=== PATIENT | male | born 1965 | race Caucasian/White ===

== ENCOUNTER 2019-01-08 18:49 | Inpatient (IN) | payer OTHER ==
[~2019-01-08] VITALS: Ht 180.3 cm; Wt 83.2 kg
[2019-01-08 19:36] LABS: BASO % 0.7 % (0.0-2.0); EOS # 0.1 (0.0-0.7); EOS % 2.1 % (0-4.0); GRAN # 3.7 (1.4-6.5); GRAN % 64.4 % (42.2-75.2); HEMATOCRIT 38.7 % (42.0-52.0); HEMOGLOBIN 13.3 g/dl (13.5-18.0); LYMPH # 1.3 (1.2-3.4); LYMPH % 23.5 % (20.0-51.0); MEAN CELL VOLUME 86 fl (80.0-100.0); MEAN CORPUSCULAR HEMOGLOBIN 30 pg (27.0-31.0); MEAN CORPUSCULAR HGB CONC 34 g/dl (33.0-37.0); MONO # 0.5 (0.1-0.6); MONO % 8.9 % (1.7-9.3); PLATELET COUNT 210 K/mm3 (130-400); REDCELL DISTRIBUTION WIDTH-CV 13.5 % (11.5-14.5)
[2019-01-08 19:46] LABS: COLLECTION METHOD CLEAN CATCH
[2019-01-08 19:46] LABS: INR 1.1 (0.8-3.0); PROTHROMBIN TIME 12.9 SECONDS (9.7-12.8)
[2019-01-08 19:49] LABS: ALBUMIN 3.9 gm/dL (3.5-5.0); BILIRUBIN,TOTAL 7.8 mg/dL (0.0-1.0); C-REACTIVE PROTEIN 2.6 mg/dL (0.0-0.9); CALCIUM 9.5 mg/dL (8.4-10.2); CREATININE, serum 0.7 mg/dL (0.66-1.25); POTASSIUM 3.4 mmol/L (3.4-5.0); TOTAL PROTEIN 7.1 gm/dL (6.4-8.2)
[2019-01-08 19:55] LABS: MUCOUS Present /lpf; PH 5 (5-8); SQUAMOUS EPITHELIAL 0-2 /hpf; URINE APPEARANCE Clear; URINE BACTERIA None Seen /hpf; URINE BILIRUBIN Positive (NEGATIVE); URINE BLOOD Negative (NEGATIVE); URINE COLOR Amber; URINE GLUCOSE Negative (NEGATIVE); URINE KETONE Negative (NEGATIVE); URINE LEUKOCYTE ESTERASE Negative (NEGATIVE); URINE NITRATE Negative (NEGATIVE); URINE PROTEIN(semi-quant) Negative (NEGATIVE); URINE RBC None Seen /hpf; URINE UROBILINOGEN >=4.0 mg/dL (NEGATIVE)
[2019-01-08] MEDS ORDERED: PRINIVIL2.5 MG PO (20:09)
--- NOTE | 2019-01-08 21:00 | NUR ---
Patient arrived to floor from ED per w/c. Ambulatory in room. Has SL to left AC without redness or swelling. Denies pain at this time.
[2019-01-08 21:05] VITALS: BP 122/71; PULSE 50; TEMP 97.7
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
[2019-01-08 23:19] VITALS: BP 106/62; PULSE 59; TEMP 97.7
[2019-01-09] VITALS (16 sets, daily range): BP systolic 101–123; BP diastolic 57–72; PULSE 57–99; TEMP 97.5–99.1
--- NOTE | 2019-01-09 01:45 | NUR ---
Patient IV site with mild infiltration. Restarted #20 to right wrist on first attempt. IVF infusing without redness or swelling.
--- NOTE | 2019-01-09 02:00 | NUR ---
Patient denies need for pain meds at this time. Remains NPO. IV infusing to right wrist without redness or swelling.
--- NOTE | 2019-01-09 05:36 | NUR ---
Patient voids 300cc of dark tea colored urine. Refuses SCD's stating "I am walking around". IVF continue to right wrist without redness or swelling.
--- NOTE | 2019-01-09 06:09 | NUR ---
Phoned Dr Pedraza regarding ERCP potential time. New orders given for a noon time frame today.
[2019-01-09 06:58] LABS: BASO % 0.9 % (0.0-2.0); EOS # 0.2 (0.0-0.7); EOS % 3.9 % (0-4.0); GRAN # 2.4 (1.4-6.5); GRAN % 54.4 % (42.2-75.2); HEMOGLOBIN 12.4 g/dl (13.5-18.0); LYMPH # 1.3 (1.2-3.4); LYMPH % 29.5 % (20.0-51.0); MEAN CELL VOLUME 87 fl (80.0-100.0); MEAN CORPUSCULAR HEMOGLOBIN 30 pg (27.0-31.0); MEAN CORPUSCULAR HGB CONC 34 g/dl (33.0-37.0); MONO # 0.5 (0.1-0.6); MONO % 11.1 % (1.7-9.3); PLATELET COUNT 198 K/mm3 (130-400); RED BLOOD COUNT 4.21 M/mm3 (4.20-5.60); REDCELL DISTRIBUTION WIDTH-CV 13.7 % (11.5-14.5)
[2019-01-09 07:00] LABS: HEMATOCRIT 36.4 % (42.0-52.0)
[2019-01-09 07:12] LABS: ALBUMIN 3.3 gm/dL (3.5-5.0); BILIRUBIN,TOTAL 6.6 mg/dL (0.0-1.0); CALCIUM 8.7 mg/dL (8.4-10.2); CREATININE, serum 0.6 mg/dL (0.66-1.25); POTASSIUM 3.4 mmol/L (3.4-5.0); TOTAL PROTEIN 6.2 gm/dL (6.4-8.2)
--- NOTE | 2019-01-09 08:00 | NUR ---
PATIENT IS SITTING UP IN THE CHAIR THIS MORNING. PATIENT IS A&O. VSS. BOWEL SOUNDS HYPOACTIVE ALL FOUR QUADRANTS. PATIENT IS NPO FOR PROCEDURE. PATIENT DENIES ANY COMPLAINTS OF N/V OR PAIN. POSITIVE PEDAL PULSES EQUAL BILATERALLY. IV FLUIDS INFUSING TO RIGHT HAND IV VIA IV PUMP. CALL LIGHT WITHIN REACH. PATIENT DENIES ANY NEEDS AT THIS TIME.
--- NOTE | 2019-01-09 09:05 | NUR ---
ERCP CONSENT SIGNED AND ON PATIENT'S CHART.
--- NOTE | 2019-01-09 09:36 | NUR ---
SW met with the patient to discuss discharge plan. The patient lives in [place] with his , Sridhar. He reports independence with ADLs and has a cane and walker. The patient's PCP is Dr. Edin Narvaez and he receives his medications at the [facility] in [place]. He reports no difficulties obtaining his meds. The patient plans to return home with his upon discharge. No additional needs at this time.
--- NOTE | 2019-01-09 10:40 | NUR ---
Initial visit; Patient clived [facility] for looking in on him and offering God's blessings though he declined additional Spiritual Care.
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
--- NOTE | 2019-01-09 12:15 | NUR ---
PATIENT AMBULATING INDEPENDENTLY WITH IV POLE IN HALLWAYS. PATIENT CONSENT SIGNED AND ON PATIENT CHART. PRE-OP PEPCID IV GIVEN. NS TO GRAVITY TUBING INFUSING TO RIGHT WRIST IV. NO NEEDS AT THIS TIME.
--- NOTE | 2019-01-09 12:44 | NUR ---
PATIENT TAKEN TO PERIOP VIA CART BY ATNON CARRERO. WILL WAIT FOR PATIENT ARRIVAL BACK TO ROOM 350.
--- NOTE | 2019-01-09 14:30 | NUR ---
DR. VIVAS NOTIFIED OF SURGICAL CONSULT S/P ERCP WITH DR. MATHEW.
--- NOTE | 2019-01-09 15:30 | NUR ---
DIET ADVANCED TO [facility]ART [facility] PORB BY DR. GONZALEZ.
--- NOTE | 2019-01-09 19:17 | NUR ---
REPORT GIVEN TO ANTON GOMEZ.
--- NOTE | 2019-01-09 20:20 | NUR ---
Pt. sitting up on bench at this time. Pt. is A&OX3, assessment complete. INT to rt. wrist patent. Pt. reported lower back pain at a 7 on pain scale. KORIN Alicia notified, new order recieved. Gave pain meds per orders. Pt. denies further needs, call light within reach.
[2019-01-10] VITALS (11 sets, daily range): BP systolic 101–134; BP diastolic 54–78; PULSE 56–77; TEMP 97.7–98.5
[2019-01-10 06:53] LABS: BASO # 0.1 (0.0-0.2); BASO % 1.2 % (0.0-2.0); EOS # 0.2 (0.0-0.7); EOS % 4.7 % (0-4.0); GRAN # 1.6 (1.4-6.5); GRAN % 38.1 % (42.2-75.2); HEMOGLOBIN 11.8 g/dl (13.5-18.0); LYMPH # 1.8 (1.2-3.4); LYMPH % 45.2 % (20.0-51.0); MEAN CELL VOLUME 87 fl (80.0-100.0); MEAN CORPUSCULAR HEMOGLOBIN 29 pg (27.0-31.0); MEAN CORPUSCULAR HGB CONC 33 g/dl (33.0-37.0); MEAN PLATELET VOLUME 10.2 fl (7.4-10.4); MONO # 0.4 (0.1-0.6); MONO % 10.6 % (1.7-9.3); PLATELET COUNT 198 K/mm3 (130-400); RED BLOOD COUNT 4.09 M/mm3 (4.20-5.60)
[2019-01-10 06:54] LABS: HEMATOCRIT 35.7 % (42.0-52.0)
[2019-01-10 07:08] LABS: ALBUMIN 3.2 gm/dL (3.5-5.0); BILIRUBIN UNCONJUGATED 1.3 mg/dL (0.0-1.1); BILIRUBIN,DIRECT 2.6 mg/dL (0.0-0.4); CALCIUM 8.7 mg/dL (8.4-10.2); CREATININE, serum 0.65 mg/dL (0.66-1.25); POTASSIUM 3.8 mmol/L (3.4-5.0)
--- NOTE | 2019-01-10 08:00 | NUR ---
PATIENT IS UP TO THE CHAIR INDEPENDENTLY THIS MORNING. PATIENT IS A&O. VSS. BOWEL SOUNDS ACTIVE ALL FOUR QUADRANTS. PATIENT DENIES ANY COMPLAINTS OF N/V. PATIENT IS NPO FOR SURGERY. JAUNDICE AND GENERALIZED WEAKNESS NOTED. POSITIVE PEDAL PULSES EQUAL BILATERALLY. RIGHT WRIST TO INT. CALL LIGHT WITHIN REACH. PATIENT DENIES ANY NEEDS AT THIS TIME.
--- NOTE | 2019-01-10 08:55 | NUR ---
PATIENT GIVEN PRN DOSE OF DILAUDID AND ZOFRAN FOR PAIN AND NAUSEA. WILL CONTINUE TO MONITOR.
--- NOTE | 2019-01-10 13:40 | NUR ---
PATIENT TAKEN TO PERIOP VIA BED FROM ROOM 350 BY ANTON CARRERO.
--- NOTE | 2019-01-10 17:10 | NUR ---
PATIENT ARRIVED BACK TO ROOM 350 VIA BED FROM THE PACU. PATIENT IS DROWSY FROM SURGERY, BUT AROUSES EASILY TO NAME. POST-OP VSS. ABDOMINAL LAP SITES X3 DRESSED WITH GAUZE & TAPE AND ARE CD&I. PRESENT AT THE BEDSIDE. PATIENT TOLERATING SIPS AND CHIPS. CALL LIGHT WITHIN REACH. NO OTHER NEEDS AT THIS TIME.
--- NOTE | 2019-01-10 18:55 | NUR ---
PATIENT CALLED OUT REQUESTING PAIN MEDICATION. PATIENT PRE-MEDICATED WITH IV PHENERGAN PRIOR TO RECIEVING IV DILAUDID PER REQUEST. WILL CONTINUE TO MONITOR.
--- NOTE | 2019-01-10 20:00 | NUR ---
REPORT GIVEN TO ANTON RUSS.
--- NOTE | 2019-01-10 20:20 | NUR ---
Pt resting in bed after ambulating in halls with . No distress noted. Respirations even and unalbored. Lungs clear. Pt c/o some pain and nausea at this time, but had medication at change of shift. Lpa sites x3 clean dry and intact. SCDs in place. IVF infusing without difficutly. Will continue to monitor.
[2019-01-11 00:07] VITALS: BP 130/69; PULSE 64; TEMP 98.5
[2019-01-11 04:21] VITALS: BP 121/68; PULSE 59; TEMP 98
[2019-01-11 07:06] LABS: BASO % 0.1 % (0.0-2.0); GRAN # 5.7 (1.4-6.5); GRAN % 74.2 % (42.2-75.2); HEMATOCRIT 33.3 % (42.0-52.0); HEMOGLOBIN 10.8 g/dl (13.5-18.0); LYMPH # 1.4 (1.2-3.4); LYMPH % 18.2 % (20.0-51.0); MEAN CELL VOLUME 89 fl (80.0-100.0); MEAN CORPUSCULAR HEMOGLOBIN 29 pg (27.0-31.0); MEAN CORPUSCULAR HGB CONC 32 g/dl (33.0-37.0); MEAN PLATELET VOLUME 10.6 fl (7.4-10.4); MONO # 0.6 (0.1-0.6); MONO % 7.2 % (1.7-9.3); PLATELET COUNT 217 K/mm3 (130-400); RED BLOOD COUNT 3.76 M/mm3 (4.20-5.60); REDCELL DISTRIBUTION WIDTH-CV 14.4 % (11.5-14.5)
--- NOTE | 2019-01-11 07:08 | NUR ---
report from Roya WALTON.
[2019-01-11 07:14] LABS: BILIRUBIN,TOTAL 2.9 mg/dL (0.0-1.0); CALCIUM 8.6 mg/dL (8.4-10.2); CREATININE, serum 0.67 mg/dL (0.66-1.25); POTASSIUM 4.1 mmol/L (3.4-5.0); TOTAL PROTEIN 5.6 gm/dL (6.4-8.2)
[2019-01-11 08:13] VITALS: BP 117/70; PULSE 59; TEMP 97.6
--- NOTE | 2019-01-11 09:51 | NUR ---
Follow up; Patient thanked [employer] for looking in on him and wishing him well and offering God's blessings.
--- NOTE | 2019-01-11 10:37 | NUR ---
PT UP INDEPENDENTLY. CLEAR FOR DISCAHRGE. SHOWERED INDEPENDENTLY. INR DISCONTINUED TIP INTACT PT TOLERATED WELL. HOSPITALIST TEAM ROUNDED AND CLEARED FOR DISCHARGE WHEN IS READY.
[2019-01-11] MEDS ORDERED: NORCO 325 MG-51 TAB PO (10:52)
[2019-01-11 10:55] VITALS: BP 118/67; PULSE 75; TEMP 98.4
--- NOTE | 2019-01-11 11:13 | NUR ---
APPOINTMENT MADE WITH DR. VIVAS OFFICE FOR FOLLOW UP
[2019-01-11 15:57] VITALS: BP 123/67; PULSE 73; TEMP 99.1
--- NOTE | 2019-01-11 17:31 | NUR ---
reviewed discharge instructions with patient. Questions solicited and answered. pt left ambulatory with staff.
== END 2019-01-11 17:32 | disposition home or self-care (01) | DRG 419 ==
LOC: COL.ER 18:49 → SURG 19:37
PROVIDERS: Family Medicine; Nurse Practitioner Family; Physician Assistant; Surgery; ADMIT Hospitalist
PROC: 0FC98ZZ Extirpation of Matter from Common Bile Duct, Via Natural or Artificial Opening Endoscopic (ICD-10-PCS; 2019-01-09)
PROC: 0FT44ZZ Resection of Gallbladder, Percutaneous Endoscopic Approach (ICD-10-PCS; principal; 2019-01-10 15:00)
DX: K80.65 Calculus of gallbladder and bile duct with chronic cholecystitis with obstruction (principal); I10 Essential (primary) hypertension; E87.6 Hypokalemia
CPT/HCPCS: 99222-AI; 99231-AI; 99239; A4216; C1769; J0690; J0696; J1100; J1170; J1885; J2175; J2250; J2405; J2550; J2704; J3010; J3480; J7030; Q9967